=== PATIENT | male | born 1960 | race African-American/Black ===

== ENCOUNTER 2019-10-04 09:45 | Emergency (ER) | payer SELFPAY ==
[2019-10-04 10:06] LABS: #Basophils 0.1 thou/uL (0.0-0.2); #Eosinphils 0.6 thou/uL (0.0-0.7); #Lymphocytes 1.4 thou/uL (1.20-3.40); #Neutrophils 5.2 thou/uL (1.40-6.50); %Basophils 0.7 % (0.0-1.0); %Eosinophils 6.9 % (0.0-10.0); %Lymphocytes 16.9 % (21.0-51.0); %Monocytes 12.6 % (0.0-10.0); %Neutrophils 62.9 % (42.0-75.0); Hemoglobin 15.6 g/dL (14.0-18.0); Mean Corpuscular HGB CONC 33.3 g/dL (32.0-36.0); Mean Corpuscular Hemoglobin 31.6 pg (27.0-31.0); Mean Corpuscular Volume 94.7 fL (78.0-98.0); Mean Platelet Volume 7.9 fL (7.4-10.4); Platelet Count 183 thou/uL (130-400); Red Blood Cell (RBC) Count 4.93 mill/uL (4.70-6.10); White Blood Cell (WBC) Count 8.2 thou/uL (4.8-10.8)
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
[2019-10-04 10:18] LABS: ALT (SGPT) 26 U/L (8-55); AST (SGOT) 27 U/L (5-34); Albumin 3.8 g/dL (3.4-4.8); Alcohol Less than 10 mg/dL (Less than 10); Alkaline Phosphatase 103 U/L (40-110); Anion Gap 15 mmol/L (10-20); BUN (Urea Nitrogen) 17 mg/dL (8.4-25.7); Bilirubin, Total 0.4 mg/dL (0.2-1.2); Calc. Creatinine Clearance 0 mL/min (70-130); Calcium 9.2 mg/dL (7.8-10.44); Carbon Dioxide 21 mmol/L (23-31); Chloride 107 mmol/L (98-107); Estimated GFR-MDRD 70; Globulin 3.5 g/dL (2.4-3.5); Glucose 118 mg/dL (80-115); Protein, Total 7.3 g/dL (5.8-8.1); Sodium 139 mmol/L (136-145)
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
[2019-10-04 10:29] LABS: INR-International Normal Ratio 0.9; Prothrombin Time 12.6 sec (12.0-14.7)
[2019-10-04] MEDS ORDERED: Ketorolac Tromethamine 30 MG/ML VIAL ONE (10:38)
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
--- NOTE | 2019-10-04 10:47 | RAD ---
XR Shoulder Lt 3 View STANDARD HISTORY: Left shoulder pain FINDINGS: There are degenerative changes in the acromioclavicular joint. No fracture or dislocation is identifi ed.
--- NOTE | 2019-10-04 10:48 | RAD ---
XR Knee Lt 4 View STANDARD HISTORY: Left knee pain, left distal thigh pain FINDINGS: No fracture or dislocation is identified.
[2019-10-04] MEDS ORDERED: Proparacaine 0.5% Opth 15 ML BOT ONE (10:55)
[2019-10-04] MEDS ORDERED: Fluorescein Opthalmic Strip ONE (10:55)
[2019-10-04] MEDS ORDERED: Bupivacaine 0.5% 10 ML VIAL ONE (10:58)
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
--- NOTE | 2019-10-04 11:56 | RAD ---
LEFT HAND 3 VIEWS: HISTORY: Fifth digit pain. FINDINGS: There is a mainly transversely oriented fracture of the base of the proximal phalanx of the little fi nger. The distal portion of the fracture is mildly volarly displaced in relation to the base of the proximal phalanx. The tip of the finger is held in prominent flexion, but I see no fracture in this area. IMPRESSION: Base of proximal phalanx little finger fracture. POS: KESHIA
== END 2019-10-04 13:13 | disposition home or self-care (01) ==
LOC: ERS 09:45
DX: S62.617A Displaced fracture of proximal phalanx of left little finger, initial encounter for closed fracture (principal); S01.412A Laceration without foreign body of left cheek and temporomandibular area, initial encounter; M79.652 Pain in left thigh; V53.5XXA Driver of pick-up truck or van injured in collision with car, pick-up truck or van in traffic accident, initial encounter
CPT/HCPCS: 12013; 26725; 70450; 70486; 71045; 72125; 72170; 80053; 80307; 85025; 85610; 85730; 96361; 96374; G0390; J1885; J3490